=== PATIENT | male | born 1960 | race Caucasian/White ===

== ENCOUNTER 2017-12-02 10:03 | Day surgery (SDC) | payer BC ==
[~2017-12-02 10:03] MED LIST: Acetaminophen TAB* 325 MG PO PRN; Buffered Lidocaine 0.9% SYRIN* 5 ML/SYR SYRINGE INTRADERM ONE; Cyclopentolate 1% OPTH.SOL* 2 ML BTL ONE; Ketorolac 0.5% OPHTH (NF) 0.5 % 5 ML BTL ONE; Lidocaine 1% MPF* 2 ML VIAL ONE; Neomycin/Polymy/Dex OPHTH.OIN* 3.5 GM ONE; Phenylephr/Ketorolac 1%/0.3% OPH DROP BTL ONE; Phenylephrine 2.5% OPTH.SOL* 2 ML BTL ONE; Tetracaine 0.5% OPTH.SOL 4 ML* 1 DROP BTL ONE; Tropicamide 1% OPTH.SOL* BTL ONE
[2017-12-02] MEDS ORDERED: Midazolam* 1 MG/ML 2 ML VIAL (2 MG) ONE (11:45)
[2017-12-02 12:37] VITALS: BP 161/90
[2017-12-02] MEDS ORDERED: Tetracaine 0.5% OPTH.SOL 4 ML* 1 DROP BTL ONE (12:47)
[2017-12-02] MEDS ORDERED: Phenylephrine 2.5% OPTH.SOL* 2 ML BTL ONE (12:47)
[2017-12-02] MEDS ORDERED: Tropicamide 1% OPTH.SOL* BTL ONE (12:47)
[2017-12-02] MEDS ORDERED: Ketorolac 0.5% OPHTH (NF) 0.5 % 5 ML BTL ONE (12:47)
[2017-12-02] MEDS ORDERED: Neomycin/Polymy/Dex OPHTH.OIN* 3.5 GM ONE (12:47)
[2017-12-02] MEDS ORDERED: Cyclopentolate 1% OPTH.SOL* 2 ML BTL ONE (12:47)
[2017-12-02] MEDS ORDERED: Lidocaine 1% MPF* 2 ML VIAL ONE (12:47)
--- NOTE | 2017-12-02 16:05 | OP ---
DATE OF OPERATION/DATE OF DICTATION: 12/02/2017 - [facility] DATE OF : 1960. SURGEON: Dr. Delon Figueroa. SADDLE AND HARNESS MAKER: None. ANESTHESIA: Topical with intravenous sedation. PRE-OP DIAGNOSIS: Cataract, left eye. POST-OP DIAGNOSIS: Cataract, left eye. OPERATIVE PROCEDURE: Phacoemulsification and cataract extraction with posterior chamber intraocular lens implant, left eye. COMPLICATIONS: None. BLOOD LOSS: None. DESCRIPTION OF PROCEDURE: The patient was brought to the operating room and received a small amount of intravenous sedation. A drop of Tetracaine was placed in his left eye. He was prepped and draped in the usual sterile fashion for ophthalmic surgery and attention was directed to the left eye where a speculum was placed. A paracentesis was created at the 5 o'clock position and 0.1 cc of 1 percent preservative-free Lidocaine was injected into the anterior chamber followed by DisCoVisc. The eye was digitally stabilized while a 2.75 mm keratome was used to create a triplanar clear corneal incision at the 3 o'clock position. A continuous curvilinear capsulorrhexis was created with a cystotome and Utrata forceps. BSS on a cannula was used to hydrodissect the lens from the capsule. Phacoemulsification was performed in a [id number] technique to create four fragments which were removed. Residual cortical material was removed with irrigation and aspiration. DisCoVisc was used to inflate the capsular bag and an AUOOTO 24.5 diopter lens was folded and inserted into the capsular bag. DisCoVisc was removed using irrigation and aspiration. BSS on a cannula was used to hydrate the corneal stroma and seal the wound. At the end of the case the pupil was round and the lens was centered. The eye was of normal pressure and the wound was water tight. The speculum was removed and topical Maxitrol ointment was placed on the surface of the eye. The eye was closed, patched and shielded and the patient was sent to the recovery room in stable condition with post operative instructions and follow-up appointment given. [id number] #: [id number] MTDD
== END 2017-12-02 12:44 | disposition home or self-care (01) ==
LOC: OREAST 10:03
PROVIDERS: ATTEND Ophthalmology
DX: H25.12 Age-related nuclear cataract, left eye (principal); E11.9 Type 2 diabetes mellitus without complications; Z79.4 Long term (current) use of insulin; Z79.84 Long term (current) use of oral hypoglycemic drugs; Z87.891 Personal history of nicotine dependence; I10 Essential (primary) hypertension
CPT/HCPCS: A9270-GY; C9447; J2250; V2632

== ENCOUNTER 2018-11-13 09:31 | Emergency (ER) | payer BC ==
[2018-11-13] MEDS ORDERED: NS 0.9% 1000 ML** 1,000 ML IV ONE (10:24)
--- NOTE | 2018-11-13 10:26 | ED ---
GI/ HPI - HPI Summary HPI Summary: Patient is a 58 y/o M presenting to ED with complaints of hematuria and back ache. He states that he had hematuria yesterday, went to [facility], which took a urine sample and discharged him to home. Patient notes that he has not been told the results of UA. This morning, he reports having another episode of hematuria and new onset of mid-lower back pain. Chills endorsed as well, no fevers reported. In room, he reports no pain in penis, no abdominal pain, no nausea, no vomiting. He was on ASA for some time but not at present. No PMHx of prostate cancer, prostate problems, bladder problems. PMHx of diabetes, no other PMHx reported. PSHx of disc replacement in 2012, cataract surgery. Former smoker, no alc, no drugs. FMHx of cardiac disease, lung CA. Nothing is noted to aggravate/alleviate Sx. On triage, pain is rated 3/10. Home medications and allergies are reviewed. - History of Current Complaint Chief Complaint: EDUrogenitalProblems Time Seen by Provider: 11/13/18 10:15 Stated Complaint: GENERAL Hx Obtained From: Patient Onset/Duration: Started Hours Ago - back pain, Started Days Ago - hematuria, Still Present Timing: Intermittent - hematuria, two episodes, Lasting Hours - back pain Severity: Mild - 3/10 Current Severity: Mild - 3/10 Pain Intensity: 3 Location of Pain: Other - mid-lower back pain Associated Signs and Symptoms: Positive: Back Pain, Hematuria, Chills, Other: - no penile pain. Negative: Nausea, Vomiting, Fever, Abdominal Pain Aggravating Factor(s): Nothing Alleviating Factor(s): Nothing - Allergy/Home Medications Allergies/Adverse Reactions: Allergies Allergy/AdvReac Type Severity Reaction Status Date / Time shellfish derived Allergy Hives Verified 12/02/17 11:06 PMH/Surg Hx/FS Hx/Imm Hx Endocrine/Hematology History: Reports: Hx Anticoagulant Therapy - 81 mg ASA a day., Hx Diabetes - Type II Denies: Hx Thyroid Disease Cardiovascular History: Reports: Hx Hypertension - on medication Denies: Hx Congestive Heart Failure, Hx Deep Vein Thrombosis, Hx Myocardial Infarction, Hx Pacemaker/ICD, Other Cardiovascular Problems/Disorders Respiratory History: Denies: Hx Asthma, Hx Chronic Obstructive Pulmonary Disease (COPD), Hx Lung Cancer, Hx Pneumonia, Hx Pulmonary Embolism, Other Respiratory Problems/ Disorders GI History: Denies: Hx Gall Bladder Disease, Hx Gastrointestinal Bleed, Hx Ulcer, Hx Urosepsis, Other GI Disorders History: Denies: Hx Kidney Stones, Hx Renal Disease, Other Problems/Disorders Musculoskeletal History: Reports: Other Musculoskeletal History - C-5-6 surgery Sensory History: Reports: Hx Cataracts - Left eye, Hx Contacts or Glasses - GLASSES Denies: Hx Hearing Aid Opthamlomology History: Reports: Hx Cataracts - Left eye, Hx Contacts or Glasses - GLASSES Neurological History: Denies: Hx Dementia, Hx Migraine, Hx Seizures, Hx Transient Ischemic Attacks (TIA), Other Neuro Impairments/Disorders Psychiatric History: Denies: Hx Anxiety, Hx Depression, Hx Panic Disorder, Hx Schizophrenia, Hx Bipolar Disorder - Surgical History Surgery Procedure, Year, and Place: 04/04/15 CERVICAL DISC REPLACED. 2016- Left eye surgery- retinal detachment Hx Anesthesia Reactions: No Infectious Disease History: No Infectious Disease History: Denies: Hx Clostridium Difficile, Hx Hepatitis, Hx Human Immunodeficiency Virus (HIV), Hx of Known/Suspected MRSA, Hx Shingles, Hx Tuberculosis, Hx Known/ Suspected VRE, Hx Known/Suspected VRSA, History Other Infectious Disease, Traveled Outside the [place] in Last 30 Days - Family History Known Family History: Positive: Cardiac Disease, Other - lung CA - Social History Alcohol Use: None Substance Use Type: Reports: None Smoking Status (MU): Former Smoker Type: Cigarettes Amount Used/How Often: <1 PPD Length of Time of Smoking/Using Tobacco: 39 YEARS Have You Smoked in the Last Year: Yes Review of Systems Positive: Chills. Negative: Fever Negative: Abdominal Pain, Vomiting, Nausea Positive: hematuria, other - NEGATIVE - PENILE PAIN Musculoskeletal: Other - POSITIVE - MID-LOWER BACK PAIN All Other Systems Reviewed And Are Negative: Yes Physical Exam - Summary Physical Exam Summary: VITAL SIGNS: Reviewed. GENERAL: Patient is a well-developed and nourished male who is lying comfortable in the stretcher. Patient is not in any acute respiratory distress. HEAD AND FACE: Normocephalic and atraumatic. EYES: PERRLA, EOMI x 2, No injected conjunctiva. EARS: Hearing grossly intact. Ear canals and tympanic membranes are WNL. MOUTH: Oropharynx within normal limits. NECK: Supple, trachea is midline, no adenopathy, no JVD. CHEST: Symmetric, no tenderness at palpation LUNGS: Clear to auscultation bilaterally. No wheezing or crackles. CVS: RRR, S1 and S2 present, no murmurs or gallops appreciated. ABDOMEN: Soft, non-tender. No signs of distention. Positive bowel sounds. No rebound no guarding, and no masses palpated. No abdominal bruit or pulsations. EXTREMITIES: FROM in all major joints, no edema, no cyanosis or clubbing. NEURO: Alert and oriented x 3. No acute neurological deficits. Speech is normal. SKIN: Dry and warm : Circumcised penis, both testicles are descended. No masses are appreciated. Positive cremasteric reflex. Triage Information Reviewed: Yes Vital Signs On Initial Exam: Initial Vitals Temp Pulse Resp BP Pulse Ox 97.6 F 85 20 182/112 98 11/13/18 09:34 11/13/18 09:34 11/13/18 09:34 11/13/18 09:34 11/13/18 09:34 Vital Signs Reviewed: Yes Diagnostics - Vital Signs Vital Signs Temp Pulse Resp BP Pulse Ox 11/13/18 09:34 97.6 F 85 20 182/112 98 - Laboratory Result Diagrams: 11/13/18 10:31 11/13/18 10:31 Lab Statement: Any lab studies that have been ordered have been reviewed, and results considered in the medical decision making process. - CT abd/pel ct CT Interpretation Completed By: Radiologist Summary of CT Findings: IMPRESSION: No evidence of obstructive uropathy is noted. Cholelithiasis without biliary. duct dilatation. No bladder wall masses or kidney masses are identified. This report was reviewed by ED physician. Re-Evaluation - Re-Evaluation First Eval Re-Evaluation Time: 12:49 Comment: Patient is afebrile, no signs of infection. Therefore since the H&H is normal and will be discharged the patient home with follow-up with urology. He was given instructions to return to the emergency department if he develops any worsening of the pain, if he develops any burning with urination, or any other symptom. The patient understands and agrees. GIGU Course/Dx - Course Assessment/Plan: Patient is a 58 y/o M presenting to ED with complaints of hematuria and back ache. He states that he had hematuria yesterday, went to [facility], which took a urine sample and discharged him to home. Patient notes that he has not been told the results of UA. This morning, he reports having another episode of hematuria and new onset of mid-lower back pain. Chills endorsed as well, no fevers reported. In room, he reports no pain in penis, no abdominal pain, no nausea, no vomiting. He was on ASA for some time but not at present. No PMHx of prostate cancer, prostate problems, bladder problems. PMHx of diabetes, no other PMHx reported. PSHx of disc replacement in 2013, cataract surgery. Former smoker, no alc, no drugs. FMHx of cardiac disease , lung CA. Nothing is noted to aggravate/alleviate Sx. On triage, pain is rated 3/10. Home medications and allergies are reviewed. Blood work without any significant abnormality, except for glucose of 206. Abdominopelvic CT impression: No evidence of obstructive uropathy is noted. Cholelithiasis without biliary duct dilation. No bladder wall mass or kidney masses are identified. Urinalysis positive for blood and squamous epithelial cell. We will send the urine for cultures. Patient is afebrile, no signs of infection. Therefore since the H&H is normal and will be discharged the patient home with follow-up with urology. He was given instructions to return to the emergency department if he develops any worsening of the pain, if he develops any burning with urination, or any other symptom. The patient understands and agrees. - Diagnoses Differential Diagnoses - Male: Ureteral Calculi, Urethritis, Urinary Tract Infection Provider Diagnoses: Painless hematuria Discharge - Sign-Out/Discharge Documenting (check all that apply): Patient Departure - discharge Patient Received Moderate/Deep Sedation with Procedure: No - NO PROCEDURES DONE - Discharge Plan Condition: Stable Disposition: HOME Patient Education Materials: Hematuria (ED) Referrals: Steve Hinkle MD [Primary Care Provider] - 3 Days Marquis Hernandez MD [Medical Doctor] - 3 Days Additional Instructions: RETURN TO EMERGENCY DEPARTMENT FOR ANY NEW OR WORSENING SYMPTOMS. FOLLOW UP WITH PRIMARY CARE PHYSICIAN AND UROLOGIST WITHIN THREE DAYS. - Billing Disposition and Condition Condition: STABLE Disposition: Home - Attestation Statements Document Initiated by Scribe: Yes Documenting Scribe: ARMANDO PFEIFFER Provider For Whom Scribe is Documenting (Include Credential): NITISH GUEVARA MD Scribe Attestation: I, ARMANDO PFEIFFER , scribed for NITISH GUEVARA MD on 11/14/18 at 1108. Scribe Documentation Reviewed: Yes Provider Attestation: The documentation as recorded by the scribeARMANDO accurately reflects the service I personally performed and the decisions made by me, NITISH GUEVARA MD Status of Scribe Document: Viewed
[2018-11-13 10:39] LABS: ABS Basophils 0.1 10^3/ul (0-0.2); ABS Eosinophils 0.3 10^3/ul (0-0.6); ABS Lymphocytes 1.5 10^3/ul (1.0-4.8); ABS Monocytes 0.8 10^3/ul (0-0.8); ABS Neutrophils 5.8 10^3/ul (1.5-7.7); ABS Nucleated RBC 0 10^3/ul; Eosinophil % 3.4 %; Hematocrit 43 % (42-52); Lymphocyte % 17.5 %; Mean Corpuscular HGB Conc 35 g/dl (31-36); Mean Corpuscular Hemoglobin 29 pg (27-31); Mean Corpuscular Volume 84 fL (80-94); Mean Platelet Volume 8.6 fL (7.4-10.4); Nucleated Red Blood Cells % 0.1; Platelet Count 234 10^3/ul (150-450); Red Blood Count 5.14 10^6/ul (4.00-5.40); Red Cell Distribution Width 13 % (10.5-15); White Blood Count 8.5 10^3/ul (3.5-10.8)
[2018-11-13 10:52] LABS: Activated Partial Thrombo Time 27.7 seconds (26.0-36.3); INR 0.86 (0.77-1.02)
[2018-11-13 10:59] LABS: Albumin 3.6 g/dL (3.2-5.2); Albumin/Globulin Ratio 1.1 (1-3); BUN/Creatinine Ratio 22.4 (8-20); C Reactive Protein 1.38 mg/L (<8.01); Calcium 8.7 mg/dL (8.6-10.3); EGFR African American 94.7 (>60); EGFR Non-African American 78.3 (>60); Globulin 3.2 g/dL (2-4); Potassium 4.3 mmol/L (3.5-5.0); Total Bilirubin 0.5 mg/dL (0.2-1.0); Total Protein 6.8 g/dL (6.4-8.9)
[2018-11-13] MEDS ORDERED: Iodixanol* (CONTRAST) 320 MG/ML 100 ML SDV IV ONE (11:08)
[2018-11-13 12:38] LABS: Urine Appearance Clear; Urine Bacteria Absent (Absent); Urine Bilirubin Negative (Negative); Urine Blood 1+ (Negative); Urine Color Yellow; Urine Glucose 2+(150 mg/dL) (Negative); Urine Ketones Negative (Negative); Urine Nitrite Negative (Negative); Urine Protein 1+(30 mg/dL) (Negative); Urine Red Blood Cell 2+(6-10/hpf) (Absent); Urine Specific Gravity 1.042 (1.010-1.030); Urine Squamous Epithelial Cell Present (Absent); Urine Urobilinogen Negative (Negative); Urine White Blood Cell Absent (Absent)
[2018-11-13 13:00] VITALS: BP 168/99
== END 2018-11-13 13:01 | disposition home or self-care (01) ==
LOC: ED 09:31
DX: R31.9 Hematuria, unspecified (principal); M54.5 Low back pain; K80.20 Calculus of gallbladder without cholecystitis without obstruction; I10 Essential (primary) hypertension; Z79.82 Long term (current) use of aspirin; Z87.891 Personal history of nicotine dependence
CPT/HCPCS: 36415; 74177; 80053; 81003; 81015; 83605; 83690; 85025; 85610; 85730; 86140; 96360; 99283; Q9967